=== PATIENT | female | born 1980 | race Caucasian/White ===

== ENCOUNTER 2017-02-06 07:34 | Day surgery (SDC) | payer BC ==
[2017-02-05 13:03] VITALS: BMI 45.1
[2017-02-06] MEDS ORDERED: DEXAMETHASONE SOD PHOSPHATE/PF 10 MG/ML SDV ONE (08:50)
[2017-02-06] MEDS ORDERED: MIDAZOLAM HCL 2 MG/2 ML SINGLE DOSE VIAL ONE ×2 (08:51→09:37)
[2017-02-06] MEDS ORDERED: ROPIVACAINE HCL 0.5% 30ML VIAL ONE (08:51)
[2017-02-06] MEDS ORDERED: ceFAZolin SODIUM 1 GM VIAL ONE (09:37)
[2017-02-06] MEDS ORDERED: PROPOFOL 20 ML ONE (09:37)
[2017-02-06] MEDS ORDERED: SUCCINYLCHOLINE CHLORIDE 200 MG/10 ML VIAL ONE (09:37)
[2017-02-06] MEDS ORDERED: LIDOCAINE HCL 2% JELLY (5 ML/TUBE) ONE (09:45)
[2017-02-06] MEDS ORDERED: ROCURONIUM BROMIDE 50 MG/5 ML VIAL ONE (09:50)
[2017-02-06] MEDS ORDERED: ACETAMINOPHEN 1000 MG/100 ML VIAL (NON FORMULARY) IVPB ONE (10:20)
[2017-02-06] MEDS ORDERED: PROMETHAZINE HCL 25 MG/1 ML VIAL IVPUSH PRN (10:20)
[2017-02-06] MEDS ORDERED: GLYCOPYRROLATE 0.2 MG/1 ML VIAL ONE (10:20)
[2017-02-06] MEDS ORDERED: NEOSTIGMINE METHYLSULFATE 0.5 MG/ML - 10 ML MDV ONE (10:20)
[2017-02-06] MEDS ORDERED: ONDANSETRON 4 MG/2 ML VIAL IVPUSH PRN (10:29)
[2017-02-06] MEDS ORDERED: oxyCODONE HCL 5 MG TABLET PO PRN (10:29)
[2017-02-06] MEDS ORDERED: LACTATED RINGERS SOLUTION 1,000 ML IV SCH (10:30)
[2017-02-06] MEDS ORDERED: LORAZEPAM CARPU-JECT 2 MG/ML DISP.SYRIN IVPUSH PRN (11:25)
[2017-02-06] MEDS: diazePAM CARPU-JECT 10 MG/2 ML DISP.SYRIN ONE ×2 (11:30→11:40)
[2017-02-06 13:18] VITALS: TEMP 98
[2017-02-06 14:15] VITALS: BP 113/80; PULSE 93
--- NOTE | 2017-02-09 11:55 | OP ---
DATE OF OPERATION: 02/06/2017 SURGEON: Ricardo Maldonado MD COSMETOLOGY EDUCATOR: MURPHY Hollis PREOPERATIVE DIAGNOSES: 1. Right shoulder rotator cuff tear. 2. Right shoulder impingement syndrome. 3. Right shoulder acromioclavicular degenerative joint disease. 4. Right shoulder superior labral tear, anterior and posterior synovitis. POSTOPERATIVE DIAGNOSES: 1. Right shoulder rotator cuff tear. 2. Right shoulder impingement syndrome. 3. Right shoulder acromioclavicular degenerative joint disease. 4. Right shoulder superior labral tear, anterior and posterior synovitis. PROCEDURE: 1. Right shoulder arthroscopy with rotator cuff repair. 2. Right shoulder arthroscopy with subacromial decompression. 3. Right shoulder arthroscopy with resection of distal clavicle acromioclavicular joint. 4. Right shoulder arthroscopy with debridement major. FINDINGS: 1. Superior labral tear anterior and posterior type 1 with intact biceps anchor. 2. A 10% biceps tear. 3. A 90% supraspinatus rotator cuff tear at site of calcification in the supraspinatus tendon. 4. Thickened scar subacromial space. 5. Imbedded calcium in the supraspinatus. 6. Type 2-3 acromion with anterolateral spurring. 7. Inferior spurs to clavicle, acromioclavicular joint. 8. Posterior labral fraying. 9. grade 2 cartilage glenoid. REPAIR TYPE: Calcium was removed from the supraspinatus at the insertion to the greater tuberosity. Due to the thinning of the area, a [id number] repair was performed to allow for thickening of that area. DESCRIPTION OF PROCEDURE: Informed consent was obtained. The patient was taken to the operating room where the upper extremity was prepped and draped in a sterile fashion. The shoulder was manipulated for a full range of motion. Posterior incision portal was made and directed to glenohumeral joint. Under direct visualization, an anterior incision and portal was made. Extensive synovitis, as well as chondral injuries throughout the glenohumeral joint were debrided and removed. Any identified labral injuries, including superior labral tear, anterior and posterior, and anterior labrum torn portions were removed as well. Rotator cuff was visualized and noted to have full-thickness tear. The edges were debrided. Posterior incision portal was redirected to subacromial space where a lateral incision portal was made. Excessive and thickened scar tissue noted throughout the subacromial space, including bursal and scar tissue, were removed. The type 2 acromion was converted into a flattened type 1 using a murphy for subacromial decompression. Distal inferior spur at the distal clavicle was also debrided with the use of accessory portal in the AC joint. Distal clavicle resection including excision of distal 1 cm undersuface of clavicle extending to the inner articular portion. The edges of the rotator cuff were identified. Sutures were placed into the rotator cuff and secured using anchors throughout the greater tuberosity. Prior to securing, a bleeding bed was made using a small murphy, creating a bleeding surface of the rotator cuff insertion. The shoulder was then drained. A single suture as placed on all portals and a sterile dressing was placed. The patient was transferred to the recovery room without complication. RICARDO MALDONADO M.D. [id number]
--- NOTE | 2017-02-10 11:15 | PATH ---
Surgical Pathology Report Patient Name: ELIU XAVIER [facility]. Rec. #: [id number] /Age/Gender: 1980 (Age: 37) / F Account: [id number] Location: [facility] Taken: 02/06/2017 Received: 02/06/2017 Reported: 02/10/2017 Physicians: Ricardo Howard M.D. Specimen(s) Received RIGHT SHOULDER SHAVINGS Clinical History Impingement syndrome of right shoulder Final Diagnosis RIGHT SHOULDER, ARTHROSCOPIC SHAVINGS: SYNOVIUM WITH MARKED ACUTE INFLAMMATION, ALONG WITH PORTIONS OF CARTILAGE, SKELETAL MUSCLE, AND BONE. Comment: Recommend correlation with clinical findings and follow up as clinically indicated. Electronically Signed Nilo Cuevas M.D. Gross Description Received in formalin, labeled "right shoulder shavings," is a 4.0 x 2.7 x 0.3 cm. aggregate of ho-yellow soft tissue fragments. A sales representative [employer] portion is submitted in one cassette. 02/09/201702/09/2017
== END 2017-02-06 14:05 | disposition home or self-care (01) ==
LOC: FASU 07:34
PROVIDERS: ATTEND Orthopaedic Surgery
PROC: 0RNJ4ZZ Release Right Shoulder Joint, Percutaneous Endoscopic Approach (ICD-10-PCS; 2017-02-06)
PROC: 0PB94ZZ Excision of Right Clavicle, Percutaneous Endoscopic Approach (ICD-10-PCS; 2017-02-06)
PROC: 0RBJ4ZZ Excision of Right Shoulder Joint, Percutaneous Endoscopic Approach (ICD-10-PCS; 2017-02-06)
PROC: 0LB14ZZ Excision of Right Shoulder Tendon, Percutaneous Endoscopic Approach (ICD-10-PCS; principal; 2017-02-06 10:17)
DX: M75.101 Unspecified rotator cuff tear or rupture of right shoulder, not specified as traumatic (principal); M75.41 Impingement syndrome of right shoulder; M19.011 Primary osteoarthritis, right shoulder; M24.111 Other articular cartilage disorders, right shoulder; M65.811 Other synovitis and tenosynovitis, right shoulder
CPT/HCPCS: 88304-TC; 94010; 94760